=== PATIENT | male | born 1945 | race Caucasian/White ===

== ENCOUNTER 2022-01-24 08:42 | Inpatient (IN) ==
[2022-01-24 09:19] LABS: INR 1.1; Prothrombin Time 12.6 Seconds (9.4-12.1)
[2022-01-24 09:22] LABS: Basophils # 0.1 K/mcL (0.0-0.2); Basophils % 0.9 %; Eosinophils # 0.2 K/mcL (0.0-0.6); Eosinophils % 1.9 %; Hemoglobin 14.4 g/dL (12.9-16.9); Immature Granulocytes % 0.1 % (0-4); Lymphocytes # 1.9 K/mcL (0.6-4.6); Lymphocytes % 23.8 %; Mean Corpuscular HGB Conc 34.3 g/dL (31.6-35.5); Mean Corpuscular Volume 96.1 fL (83.0-100.0); Mean Platelet Volume 9.7 fL (9.4-12.4); Monocytes # 0.6 K/mcL (0.0-1.3); Monocytes % 8.1 %; Neutrophils # 5.1 K/mcL (1.6-8.9); Platelet Count 221 K/mcL (140-400); Red Blood Count 4.37 M/mcL (4.19-5.50); Red Cell Distribution Width 15.6 % (11.5-14.5); Segmented Neutrophils % 65.2 %; White Blood Count 7.9 K/mcL (4.3-11.1)
[2022-01-24] MEDS ORDERED: *HR* Midazolam HCl 2 MG/2 ML VIAL IVP ONE ×2 (09:37→09:50)
[2022-01-24] MEDS ORDERED: *HR* FentaNYL (PF) 100 MCG/2 ML VIAL IVP ONE ×2 (09:37→09:50)
[2022-01-24] MEDS ORDERED: 0.9 % Sodium Chloride 500 ML ONE (09:38)
[2022-01-24] MEDS ORDERED: *HR* HYDROmorphone 2 MG/ML SYRINGE IVP ONE (11:03)
[2022-01-24] MEDS ORDERED: Acetaminophen 325 MG TABLET PO PRN (11:07)
[2022-01-24] MEDS ORDERED: Naloxone 0.4 MG/ML INJ IVP PRN (11:07)
[2022-01-24] MEDS ORDERED: Ondansetron ODT 4 MG TAB.RAPDIS SL PRN (11:07)
[2022-01-24] MEDS ORDERED: Melatonin 3 MG TABLET PO PRN (11:07)
[2022-01-24] MEDS ORDERED: *HR* Heparin 5,000 UNIT/ML VIAL IVP PRN (13:24)
[2022-01-24] MEDS ORDERED: *HR* Heparin 5,000 UNIT/ML VIAL IVP ONE (13:24)
[2022-01-24] MEDS ORDERED: Ipratropium/Albuterol Neb 3 ML IH PRN (13:54)
[2022-01-24] MEDS: Heparin 25,000UNIT/250ML 1/2NS 25,000 UNIT/250 ML IV.SOLN IVC SCH (14:02)
[2022-01-25] MEDS: *HR* Heparin 5,000 UNIT/ML VIAL IVP PRN ×3 (00:36→14:46)
[2022-01-25] MEDS: Heparin 25,000UNIT/250ML 1/2NS 25,000 UNIT/250 ML IV.SOLN IVC SCH (17:59)
[2022-01-25] MEDS ORDERED: Haloperidol Lactate 5 MG/ML VIAL IVP PRN (18:01)
[2022-01-26] MEDS: Ascorbic Acid 500 MG TABLET PO SCH (09:23)
[2022-01-26] MEDS: Cholecalciferol (D-3) 1,000 UNIT (25MCG) TABLET PO SCH (09:23)
[2022-01-26] MEDS: Loratadine 10 MG TABLET PO SCH (09:23)
[2022-01-26] MEDS: Aspirin Enteric Coated 81 MG Tablet PO SCH (09:23)
[2022-01-26] MEDS: Multivit/Ca/Min/Fe/FA 1 TAB TABLET PO SCH (09:23)
[2022-01-26] MEDS: Cyanocobalamin (B-12) 1,000 MCG TABLET PO SCH (09:25)
[2022-01-26] MEDS ORDERED: Morphine Sulfate 2 MG/ML SYRINGE IVP ONE (18:01)
[2022-01-26] MEDS ORDERED: Lidocaine -MPF 1% 5 ML AMPUL ONE (18:09)
[2022-01-26] MEDS: Heparin 25,000UNIT/250ML 1/2NS 25,000 UNIT/250 ML IV.SOLN IVC SCH (19:55)
[2022-01-27] MEDS: *HR* Heparin 5,000 UNIT/ML VIAL IVP PRN (04:59)
[2022-01-27] MEDS: Cholecalciferol (D-3) 1,000 UNIT (25MCG) TABLET PO SCH (07:50)
[2022-01-27] MEDS: Cyanocobalamin (B-12) 1,000 MCG TABLET PO SCH (07:50)
[2022-01-27] MEDS: Ascorbic Acid 500 MG TABLET PO SCH (07:50)
[2022-01-27] MEDS: Loratadine 10 MG TABLET PO SCH (07:50)
[2022-01-27] MEDS: Multivit/Ca/Min/Fe/FA 1 TAB TABLET PO SCH (07:50)
[2022-01-27] MEDS: Aspirin Enteric Coated 81 MG Tablet PO SCH (07:50)
[2022-01-27 08:35] VITALS: BP 141/50; TEMP 97.8
[2022-01-27 10:23] VITALS: PULSE 59; O2SAT 96
[2022-01-27] MEDS ORDERED: *HR* FentaNYL (PF) 100 MCG/2 ML VIAL IVP STA (10:43)
[2022-01-27] MEDS ORDERED: Lidocaine -MPF 1% 5 ML AMPUL ID STA (10:43)
[2022-01-27] MEDS: Heparin 25,000UNIT/250ML 1/2NS 25,000 UNIT/250 ML IV.SOLN IVC SCH (12:19)
[2022-01-29] MEDS ORDERED: BUPRENORPHINE TP SCH (09:00)
== END 2022-01-27 13:21 | disposition home or self-care (01) | DRG 200 ==
LOC: SUATTDRO → 2NENU 08:42 → RAD 08:42
PROVIDERS: ADMIT Internal Medicine; ATTEND Internal Medicine